=== PATIENT | female | born 2000 | race Two or more races ===

== ENCOUNTER → 2025-02-04 | Outpatient (CLI) | payer BC ==
[2025-02-04 12:01] LABS: CLARITY URINE CLOUDY (CLEAR); COLOR URINE YELLOW (YELLOW); GLUCOSE URINE NEGATIVE (NEGATIVE); KETONES URINE NEGATIVE (NEGATIVE); LEUKOCYTE ESTERASE URINE NEGATIVE (NEGATIVE); NITRITE URINE NEGATIVE (NEGATIVE); OCCULT BLOOD URINE NEGATIVE (NEGATIVE); PH URINE 6.5 (4.5-8.0); PROTEIN URINE NEGATIVE (NEGATIVE); SPECIFIC GRAVITY URINE 1.027 (1.005-1.030)
[2025-02-04 12:10] LABS: BASOPHILS % 0.9 % (0.0-2.0); EOSINOPHILS % 1.5 % (0.0-5.0); HEMATOCRIT. 42.8 % (36.0-48.0); HEMOGLOBIN. 13.7 g/dL (12.0-16.0); LYMPHOCYTES % 27.4 % (20.0-50.0); MEAN CORPUSCULAR HEMOGLOBIN 28.8 pg (28.0-32.0); MEAN CORPUSCULAR HGB CONC 32.1 g/dL (31.0-37.0); MEAN CORPUSCULAR VOLUME 89.8 fL (81.0-99.0); MEAN PLATELET VOLUME 9.8 fl (7.4-10.4); MONOCYTES % 3.2 % (2.0-8.0); PLATELET 250 x1000/uL (130-400); RED BLOOD CELL COUNT 4.76 mill/uL (4.2-5.4); RED CELL DISTRIBUTION WIDTH 12.9 % (11.6-14.6); WHITE BLOOD COUNT 6.6 x1000/uL (4.5-11.0)
[2025-02-04 12:17] LABS: BACTERIA URINE TRACE; RBC URINE 0-2 /hpf (0-2); SQUAMOUS EPITHELIAL CELL URINE 2+ /lpf (RARE/1+); WBC URINE 0-2 /hpf (0-2); YEAST URINE NONE SEEN
[2025-02-04 12:22] LABS: CARBON DIOXIDE 28 mEq/L (21-32); CHLORIDE 103 mEq/L (98-107); POTASSIUM 3.9 mEq/L (3.5-5.1); SODIUM 139 mEq/L (136-145)
[2025-02-04 12:23] LABS: CALCIUM 10.1 mg/dL (8.7-10.4)
[2025-02-04 12:27] LABS: CREATININE 0.8 mg/dL (0.6-1.0); GLUCOSE 87 mg/dL (70-105); IRON 114 ug/dL (50-170)
[2025-02-04 12:28] LABS: TRIGLYCERIDE 66 mg/dL (0-150); UREA NITROGEN BLOOD 12 mg/dL (9-23)
[2025-02-04 12:29] LABS: ALANINE AMINOTRANSFERASE 15 IU/L (10-49); ALBUMIN 4.7 g/dL (3.2-4.8); ASPARTATE AMINOTRANSFERASE 24 IU/L (<34); LDL CHOLESTEROL 149 mg/dL (5-100)
[2025-02-04 12:30] LABS: BILIRUBIN TOTAL 0.6 mg/dL (0.1-1.0); CHOLESTEROL 222 mg/dL (<200); HDL CHOLESTEROL 62 mg/dL (>65); PROTEIN TOTAL 8.1 g/dL (6.0-8.3); TOTAL IRON BINDING CAPACITY 355 ug/dl (250-425)
[2025-02-04 12:32] LABS: THYROID STIMULATING HORMONE 2.48 uIU/mL (0.55-4.78)
[2025-02-04 12:42] LABS: FERRITIN 32 ng/mL (10-291); FOLIC ACID (FOLATE) SERUM 12.27 ng/mL (>5.38)
[2025-02-04 12:43] LABS: VITAMIN B12 SERUM 274 pg/mL (211-911)
[2025-02-04 12:55] LABS: HEPATITIS B SURFACE ANTIGEN NEGATIVE (Negative)
[2025-02-05 04:02] LABS: HEPATITIS A AB IGM NEGATIVE (Negative); HEPATITIS B CORE AB IGM NEGATIVE (Negative)
[2025-02-05 04:03] LABS: HEPATITIS C AB NON REACTIVE (Neg) (Negative)
[2025-02-05 07:56] LABS: B-HCG QUANTITATIVE < 1 mIU/mL (<6)
[2025-02-06 13:12] LABS: *T3 UPTAKE 30 % (24-39); FOLICLE STIMULATING HORMONE 8.3 mIU/mL (.); LUTEINIZING HORMONE 13.9 mIU/mL (.); PROLACTIN 16.5 ng/mL (4.8-33.4)
[2025-02-07 09:09] LABS: CHLAMYDIA TRACHOMATIS NAA Negative (Negative); NEISSERIA GONORRHOEAE NAA Negative (Negative)
[2025-02-08 09:09] LABS: THYROXINE BINDING GLOBULIN 32 ug/mL (13-39)
[2025-02-09 07:07] LABS: QFT MITOGEN VALUE 6.81 IU/mL (.); QFT TB GOLD PLUS Negative (Negative); QFT TB1 AG VALUE 0.06 IU/mL (.); QFT TB2 AG VALUE 0.03 IU/mL (.)
== END | disposition home or self-care (01) ==
LOC: RAD 09:53
PROVIDERS: ATTEND Internal Medicine Geriatric Medicine
DX: E28.2 Polycystic ovarian syndrome (principal); Z00.01 Encounter for general adult medical examination with abnormal findings
CPT/HCPCS: 36415; 76830; 76856; 80053; 80061; 80074; 81003; 82306; 82607; 82626; 82728; 82746; 83001; 83002; 83036; 83540; 83550; 83655; 84146; 84403; 84442; 84443; 84479; 84702; 85025; 86592; 86705; 86709; 87340; 87491; 87591